=== PATIENT | male | born 1965 | race Caucasian/White ===

== ENCOUNTER 2025-06-21 10:15 | Emergency (ER) | payer MEDICAID ==
[~2025-06-21] VITALS: Ht 172.7 cm; Wt 75.0 kg
[~2025-06-21 10:15] MED LIST: INSU100I28 SQ
[2025-06-21 10:16] VITALS: O2SAT 99
[2025-06-21] MEDS ORDERED: TOPUD PO (12:10)
[2025-06-21] MEDS ORDERED: LANTUSUD SUBCUT (12:10)
[2025-06-21] MEDS: ACETAMINOPHEN 325MG TABLET PO ONE (12:23)
[2025-06-21 13:03] VITALS: BP 138/75; PULSE 77; RESP 16; TEMP 36.7; O2SAT 99
== END 2025-06-21 13:05 | disposition home or self-care (01) ==
LOC: ER 10:21
DX: G89.29 Other chronic pain (principal); E11.9 Type 2 diabetes mellitus without complications; I10 Essential (primary) hypertension; F20.9 Schizophrenia, unspecified; F15.90 Other stimulant use, unspecified, uncomplicated; Z76.0 Encounter for issue of repeat prescription
CPT/HCPCS: 99283

== ENCOUNTER 2025-08-08 20:29 | Emergency (ER) | payer MEDICAID ==
[~2025-08-08] VITALS: Ht 182.9 cm; Wt 79.0 kg
[~2025-08-08 20:29] MED LIST changes: +LANTUSUD SUBCUT; +TOPUD PO
[2025-08-08 20:36] VITALS: BP 150/71; PULSE 94; RESP 14; TEMP 37.4; O2SAT 100
[2025-08-08] MEDS: ACETAMINOPHEN 325MG TABLET PO ONE (21:17)
[2025-08-08] MEDS ORDERED: TOPUD MT (22:10)
== END 2025-08-08 22:20 | disposition home or self-care (01) ==
LOC: ER 20:29
DX: G89.29 Other chronic pain (principal); F17.200 Nicotine dependence, unspecified, uncomplicated; E11.9 Type 2 diabetes mellitus without complications; F20.9 Schizophrenia, unspecified; I10 Essential (primary) hypertension
CPT/HCPCS: 73130; 99283

== ENCOUNTER 2025-08-09 07:25 | Emergency (ER) | payer MEDICAID ==
[~2025-08-09] VITALS: Ht 175.3 cm; Wt 95.0 kg
[~2025-08-09 07:25] MED LIST changes: +TOPUD MT
[2025-08-09 07:33] VITALS: O2SAT 96
[2025-08-09 07:58] LABS: BASOPHILS % 0.6 % (0.0-2.0); EOSINOPHILS % 1.7 % (0.0-5.0); HEMATOCRIT. 39.0 % (42.0-52.0); HEMOGLOBIN. 12.9 g/dL (14.0-18.0); LYMPHOCYTES % 25.6 % (20.0-50.0); MEAN PLATELET VOLUME 7.8 fl (7.4-10.4); MONOCYTES % 8.5 % (2.0-8.0); NEUTROPHILS % 63.6 % (40.0-76.0); PLATELET 350 x1000/uL (130-400); RED BLOOD CELL COUNT 4.85 mill/uL (4.7-6.1); RED CELL DISTRIBUTION WIDTH 15.4 % (11.6-14.6)
[2025-08-09 08:30] LABS: CREATININE 0.8 mg/dL (0.6-1.3)
[2025-08-09 08:31] LABS: UREA NITROGEN BLOOD 13 mg/dL (9-23)
[2025-08-09 08:32] LABS: ASPARTATE AMINOTRANSFERASE 38 IU/L (<34)
[2025-08-09 08:33] LABS: BILIRUBIN TOTAL 0.6 mg/dL (0.1-1.0); PROTEIN TOTAL 7.8 g/dL (6.0-8.3)
[2025-08-09 08:58] LABS: CLARITY URINE CLEAR (CLEAR); COLOR URINE YELLOW (YELLOW); GLUCOSE URINE 2+ (NEGATIVE); KETONES URINE TRACE (NEGATIVE); LEUKOCYTE ESTERASE URINE NEGATIVE (NEGATIVE); NITRITE URINE NEGATIVE (NEGATIVE); OCCULT BLOOD URINE NEGATIVE (NEGATIVE); PH URINE 6.0 (4.5-8.0); PROTEIN URINE TRACE (NEGATIVE); SPECIFIC GRAVITY URINE 1.035 (1.005-1.030); UROBILINOGEN URINE 1.0 E.U./dL (0.2-1.0)
[2025-08-09 09:14] LABS: *AMPHETAMINES SCREEN URINE PRESUMPTIVE POSITIVE (NEGATIVE); *BARBITURATES SCREEN URINE NEGATIVE (NEGATIVE); *BENZODIAZEPINES SCREEN URINE NEGATIVE (NEGATIVE); *COCAINE SCREEN URINE NEGATIVE (NEGATIVE); METHADONE URINE SCREEN NEGATIVE (NEGATIVE); OPIATES URINE SCREEN NEGATIVE (NEGATIVE); PHENCYCLIDINE URINE SCREEN NEGATIVE (NEGATIVE)
[2025-08-09 09:15] LABS: CANNABINOID URINE SCREEN NEGATIVE (NEGATIVE); ECSTASY MDMA SCREEN URINE CONF.TEST INDICATED (NEGATIVE)
[2025-08-09 09:16] LABS: RBC URINE 0-2 /hpf (0-2)
[2025-08-09 09:17] LABS: MUCUS URINE TRACE /lpf (NONE/TRACE)
[2025-08-09 09:18] LABS: BACTERIA URINE TRACE; SQUAMOUS EPITHELIAL CELL URINE NONE SEEN /lpf (RARE/1+); WBC URINE 0-2 /hpf (0-2)
[2025-08-09] MEDS ORDERED: HYDROXYZINE 25MG TABLET PO PRN (11:45)
[2025-08-09 15:53] VITALS: BP 122/51; PULSE 74; RESP 18; TEMP 36.7; O2SAT 98
[2025-08-09] MEDS ORDERED: OLANZAPINE 5MG TABLET ODT PO SCH (21:00)
== END 2025-08-09 16:28 ==
LOC: ER 07:25
DX: R45.851 Suicidal ideations (principal); F20.9 Schizophrenia, unspecified; I10 Essential (primary) hypertension; E11.9 Type 2 diabetes mellitus without complications; Z20.822 Contact with and (suspected) exposure to COVID-19
CPT/HCPCS: 80053; 80305; 81003; 80320; 85025; 36415; 93005; 99285; 87426; Z7610; A4606; G0480

== ENCOUNTER 2025-09-02 09:31 | Emergency (ER) | payer MEDICAID ==
[~2025-09-02] VITALS: Ht 177.8 cm; Wt 77.0 kg
[2025-09-02 09:32] VITALS: O2SAT 98
[2025-09-02 11:24] VITALS: BP 131/105; PULSE 78; RESP 18; TEMP 98
[2025-09-02] MEDS: ACETAMINOPHEN 325MG TABLET PO ONE (11:24)
[2025-09-02] MEDS: IBUPROFEN 600MG TABLET PO ONE (11:24)
== END 2025-09-02 11:27 | disposition left against medical advice (07) ==
LOC: ER 09:33 → CMPBEDREQ 12:04
DX: N50.89 Other specified disorders of the male genital organs (principal); E11.621 Type 2 diabetes mellitus with foot ulcer; F20.9 Schizophrenia, unspecified; I10 Essential (primary) hypertension; M19.90 Unspecified osteoarthritis, unspecified site; Z79.4 Long term (current) use of insulin
CPT/HCPCS: 99283

== ENCOUNTER 2025-09-29 17:32 | Emergency (ER) | payer MEDICAID ==
[~2025-09-29] VITALS: Ht 180.3 cm; Wt 95.0 kg
[2025-09-29] MEDS: DIAZEPAM 5 MG/ML 2ML SYR IM ONE (18:05)
[2025-09-29] MEDS: ASPIRIN 325MG EC TABLET PO ONE (18:08)
[2025-09-29 18:13] LABS: BASOPHILS % 0.4 % (0.0-2.0); EOSINOPHILS % 0.5 % (0.0-5.0); HEMATOCRIT. 36.1 % (42.0-52.0); HEMOGLOBIN. 11.9 g/dL (14.0-18.0); LYMPHOCYTES % 9.2 % (20.0-50.0); MEAN PLATELET VOLUME 8.6 fl (7.4-10.4); MONOCYTES % 5.9 % (2.0-8.0); NEUTROPHILS % 84.0 % (40.0-76.0); PLATELET 205 x1000/uL (130-400); RED BLOOD CELL COUNT 4.27 mill/uL (4.7-6.1); RED CELL DISTRIBUTION WIDTH 15.6 % (11.6-14.6)
[2025-09-29 18:25] LABS: CREATININE 0.8 mg/dL (0.6-1.3)
[2025-09-29 18:26] LABS: ETHANOL BLOOD < 10 mg/dL (<10); PROTEIN TOTAL 7.0 g/dL (6.0-8.3); TROPONIN I HIGH SENSITIVITY < 4 ng/L (3.0-53); UREA NITROGEN BLOOD 11 mg/dL (9-23)
[2025-09-29 18:27] LABS: ASPARTATE AMINOTRANSFERASE 28 IU/L (<34)
[2025-09-29 18:28] LABS: BILIRUBIN DIRECT 0.4 mg/dL (<=3.0); BILIRUBIN TOTAL 1.2 mg/dL (0.1-1.0)
[2025-09-29 18:36] LABS: INR 1.0
[2025-09-29 19:46] LABS: CLARITY URINE CLEAR (CLEAR); COLOR URINE YELLOW (YELLOW); GLUCOSE URINE 3+ (NEGATIVE); KETONES URINE 1+ (NEGATIVE); LEUKOCYTE ESTERASE URINE NEGATIVE (NEGATIVE); NITRITE URINE NEGATIVE (NEGATIVE); OCCULT BLOOD URINE TRACE (NEGATIVE); PH URINE 5.5 (4.5-8.0); PROTEIN URINE TRACE (NEGATIVE); SPECIFIC GRAVITY URINE 1.029 (1.005-1.030); UROBILINOGEN URINE 1.0 E.U./dL (0.2-1.0)
[2025-09-29 19:57] LABS: BACTERIA URINE 3+; RBC URINE NONE SEEN /hpf (0-2); SQUAMOUS EPITHELIAL CELL URINE 1+ /lpf (RARE/1+)
[2025-09-29 19:58] LABS: *AMPHETAMINES SCREEN URINE PRESUMPTIVE POSITIVE (NEGATIVE); *BARBITURATES SCREEN URINE NEGATIVE (NEGATIVE); *BENZODIAZEPINES SCREEN URINE PRESUMPTIVE POSITIVE (NEGATIVE); *COCAINE SCREEN URINE NEGATIVE (NEGATIVE); CANNABINOID URINE SCREEN NEGATIVE (NEGATIVE); ECSTASY MDMA SCREEN URINE CONF.TEST INDICATED (NEGATIVE); METHADONE URINE SCREEN NEGATIVE (NEGATIVE); OPIATES URINE SCREEN NEGATIVE (NEGATIVE); PHENCYCLIDINE URINE SCREEN NEGATIVE (NEGATIVE)
[2025-09-29 21:46] LABS: TROPONIN I HIGH SENSITIVITY < 4 ng/L (3.0-53)
[2025-09-29] MEDS ORDERED: INSU100I28 SQ (22:08)
[2025-09-29 23:50] VITALS: BP 122/86; PULSE 90; RESP 18; TEMP 36.6; O2SAT 100
== END 2025-09-29 23:58 | disposition home or self-care (01) ==
LOC: ER 17:32
DX: E11.65 Type 2 diabetes mellitus with hyperglycemia (principal); F16.10 Hallucinogen abuse, uncomplicated; Z79.4 Long term (current) use of insulin; Z79.899 Other long term (current) drug therapy
CPT/HCPCS: 80076; 80305; 80048; 81003; 80307; 80329; 80320; 83880; 83690; 85025; 85610; 85730; 84484; 36415; 71045; 76705; 93005; 96372; 99285; J3360; G0480

== ENCOUNTER 2025-09-30 07:15 | Emergency (ER) | payer MEDICAID ==
[~2025-09-30] VITALS: Ht 165.1 cm; Wt 70.0 kg
[2025-09-30 07:27] VITALS: O2SAT 100
[2025-09-30 10:17] LABS: BASOPHILS % 0.3 % (0.0-2.0); EOSINOPHILS % 0.2 % (0.0-5.0); HEMATOCRIT. 37.0 % (42.0-52.0); HEMOGLOBIN. 12.3 g/dL (14.0-18.0); LYMPHOCYTES % 9.0 % (20.0-50.0); MEAN PLATELET VOLUME 8.5 fl (7.4-10.4); MONOCYTES % 8.1 % (2.0-8.0); NEUTROPHILS % 82.4 % (40.0-76.0); PLATELET 199 x1000/uL (130-400); RED BLOOD CELL COUNT 4.40 mill/uL (4.7-6.1); RED CELL DISTRIBUTION WIDTH 15.3 % (11.6-14.6)
[2025-09-30 11:00] LABS: CREATININE 0.6 mg/dL (0.6-1.3); UREA NITROGEN BLOOD 10 mg/dL (9-23)
[2025-09-30] MEDS: ZIPRASIDONE HCL 20MG CAPSULE PO ONE (11:00)
[2025-09-30 11:01] LABS: ETHANOL BLOOD < 10 mg/dL (<10)
[2025-09-30 12:29] LABS: CLARITY URINE CLEAR (CLEAR); COLOR URINE DARK YELLOW (YELLOW); GLUCOSE URINE 2+ (NEGATIVE); KETONES URINE 3+ (NEGATIVE); LEUKOCYTE ESTERASE URINE 2+ (NEGATIVE); NITRITE URINE POSITIVE (NEGATIVE); OCCULT BLOOD URINE 2+ (NEGATIVE); PH URINE 5.5 (4.5-8.0); PROTEIN URINE TRACE (NEGATIVE); SPECIFIC GRAVITY URINE 1.027 (1.005-1.030); UROBILINOGEN URINE 1.0 E.U./dL (0.2-1.0)
[2025-09-30 12:39] LABS: BACTERIA URINE 3+; RBC URINE 0-2 /hpf (0-2); SQUAMOUS EPITHELIAL CELL URINE 1+ /lpf (RARE/1+); WBC URINE 50-100 /hpf (0-2); YEAST URINE NONE SEEN
[2025-09-30 13:05] LABS: *AMPHETAMINES SCREEN URINE PRESUMPTIVE POSITIVE (NEGATIVE); *BARBITURATES SCREEN URINE NEGATIVE (NEGATIVE); *BENZODIAZEPINES SCREEN URINE PRESUMPTIVE POSITIVE (NEGATIVE)
[2025-09-30 13:06] LABS: *COCAINE SCREEN URINE NEGATIVE (NEGATIVE); CANNABINOID URINE SCREEN NEGATIVE (NEGATIVE); ECSTASY MDMA SCREEN URINE NEGATIVE (NEGATIVE); METHADONE URINE SCREEN NEGATIVE (NEGATIVE); OPIATES URINE SCREEN NEGATIVE (NEGATIVE); PHENCYCLIDINE URINE SCREEN NEGATIVE (NEGATIVE)
[2025-09-30] MEDS: ZIPRASIDONE HCL 20MG CAPSULE PO SCH (17:31)
[2025-09-30 21:15] VITALS: BP 119/64; PULSE 96; RESP 16; TEMP 37; O2SAT 100
== END 2025-09-30 21:35 | disposition short-term general hospital (02) ==
LOC: ER 07:15
DX: F20.9 Schizophrenia, unspecified (principal); F15.10 Other stimulant abuse, uncomplicated; F16.10 Hallucinogen abuse, uncomplicated; E11.9 Type 2 diabetes mellitus without complications; N39.0 Urinary tract infection, site not specified; Z20.822 Contact with and (suspected) exposure to COVID-19; Z79.899 Other long term (current) drug therapy
CPT/HCPCS: 80048; 80305; 80307; 80320; 81003; 85025; 87077; 87186; 87426; 93005; 99285; G0480